=== PATIENT | male | born 1995 | race Caucasian/White ===

== ENCOUNTER 2021-07-28 04:10 | Emergency (ER) | payer SELFPAY ==
[~2021-07-28] VITALS: Ht 180.3 cm; Wt 81.6 kg
--- NOTE | 2021-07-28 04:10 | NUR ---
PT BIB [facility], PREBOOK. TAKEN TO CHAIR
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
[2021-07-28 04:18] VITALS: BP 153/99
--- NOTE | 2021-07-28 04:25 | NUR ---
Dr. Beaver at [facility] and exam patient.
--- NOTE | 2021-07-28 04:31 | NUR ---
Patient refused to EKG exam, Dr. Beaver notified and is aware.
[2021-07-28 04:35] VITALS: BP 153/99
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
== END 2021-07-28 04:35 ==
LOC: MED 04:10
DX: F10.129 Alcohol abuse with intoxication, unspecified (principal); Z02.89 Encounter for other administrative examinations
CPT/HCPCS: 99283